=== PATIENT | female | born 1950 | race African-American/Black ===

== ENCOUNTER 2017-07-07 16:30 | Emergency (ER) | payer MEDICAID ==
[~2017-07-07] VITALS: Ht 175.3 cm; Wt 69.4 kg
[2017-07-07 17:26] LABS: BASOPHILS # (AUTO) 0.2 /CMM (0.0-0.2); BASOPHILS % (AUTO) 2.3 % (0.0-2.0); EOSINOPHILS # (AUTO) 0.5 /CMM (0.0-0.7); EOSINOPHILS % (AUTO) 5.2 % (0.0-6.0); HEMATOCRIT 36 % (33-45); HEMOGLOBIN 11.8 g/dL (11.5-14.8); LYMPHOCYTES # (AUTO) 0.8 /CMM (0.8-4.8); LYMPHOCYTES % (AUTO) 7.8 % (20.0-44.0); MEAN CORPUSCULAR HEMOGLOBIN 28 PG (26.0-33.0); MEAN CORPUSCULAR HGB CONC 33 g/dl (31.0-36.0); MEAN CORPUSCULAR VOLUME 85 fL (82-100); MONOCYTES # (AUTO) 0.5 /CMM (0.1-1.30); MONOCYTES % (AUTO) 4.9 % (2.0-12.0); NEUTROPHILS # (AUTO) 7.8 /CMM (1.8-8.9); NEUTROPHILS % (AUTO) 79.8 % (43.0-81.0); PLATELET COUNT (AUTO) 369 /CMM (150-450); RDW COEFFICIENT OF VARIATION 15.8 (11.5-15.0); RED BLOOD CELL COUNT(AUTO) 4.23 MIL/uL (4.0-5.2); WHITE BLOOD COUNT (AUTO) 9.8 K/uL (4.3-11.0)
[2017-07-07] MEDS ORDERED: IV NS 0.9% 500 ML BAG IV ONE (17:30)
[2017-07-07 17:41] LABS: PROTHROMBIN TIME 10.4 SECS (9.5-12.7)
[2017-07-07 17:43] LABS: TROPONIN I < 0.017 ng/mL (0.00-0.056)
[2017-07-07] MEDS ORDERED: ACET650S26 GT (17:50)
[2017-07-07] MEDS ORDERED: LEVE100S GT (17:50)
[2017-07-07] MEDS ORDERED: ONDA4TAB8 GT (17:50)
[2017-07-07] MEDS ORDERED: FURO-144 GT (17:50)
[2017-07-07] MEDS ORDERED: FAMO-131 GT (17:50)
[2017-07-07] MEDS ORDERED: INSU100V27 SQ (17:50)
[2017-07-07] MEDS ORDERED: HYDR-552 GT (17:50)
[2017-07-07] MEDS ORDERED: BLOO-668 IN (17:50)
[2017-07-07] MEDS ORDERED: ALBU2.5V38 IH (17:50)
[2017-07-07] MEDS ORDERED: NUT.237L30 GT (17:50)
[2017-07-07 17:57] LABS: UREA NITROGEN, BLOOD 1 mg/dL (7-18)
--- NOTE | 2017-07-07 17:57 | NUR ---
CASEY (PT'S SON) CONTACT#[phone]
[2017-07-07 18:06] LABS: CALCIUM, SERUM 9.2 mg/dL (8.5-10.1); CARBON DIOXIDE 29 mmol/L (21-32); CHLORIDE 98 mmol/L (98-107); CREATININE 0.6 mg/dL (0.6-1.3); GLUCOSE 92 mg/dL (74-106); POTASSIUM 4.4 mmol/L (3.5-5.1); SODIUM SERUM 134 mmol/L (136-145)
--- NOTE | 2017-07-07 18:52 | NUR ---
CALLED [facility], TRANSFERRED CALL TO DR. NARVAEZ.
--- NOTE | 2017-07-07 18:57 | NUR ---
CALLED (PCP), TRANSFERRED CALL TO .
[2017-07-07] MEDS ORDERED: MORPHINE SULFATE INJ 2 MG/ML DISP.SYRIN IV ONE (19:00)
--- NOTE | 2017-07-07 19:07 | NUR ---
CALLED [facility] FOR TRANSPORT, TRIP#[id number].
[2017-07-07] MEDS ORDERED: IOHEXOL-350 100 ML VIAL IV ONE (19:25)
[2017-07-07] MEDS ORDERED: IV NS 0.9% 250 ML IV ONE (19:25)
--- NOTE | 2017-07-07 19:26 | NUR ---
CALLED BACK [facility].
--- NOTE | 2017-07-07 19:29 | NUR ---
PATIENT TO CT
[2017-07-07] MEDS ORDERED: MORPHINE SULFATE INJ 4 MG/ML DISP.SYRIN ONE (19:37)
--- NOTE | 2017-07-07 20:10 | NUR ---
CALLED BACK [facility] TO SET UP TRANSPORT, ETA 25-35 MIN
[2017-07-07 20:53] VITALS: BP 112/75
== END 2017-07-07 21:31 ==
LOC: ER 16:41
DX: C80.1 Malignant (primary) neoplasm, unspecified (principal); C78.00 Secondary malignant neoplasm of unspecified lung; I10 Essential (primary) hypertension; K21.9 Gastro-esophageal reflux disease without esophagitis; E11.9 Type 2 diabetes mellitus without complications; Z86.73 Personal history of transient ischemic attack (TIA), and cerebral infarction without residual deficits; Z79.4 Long term (current) use of insulin
CPT/HCPCS: 36415; 71010; 71275; 80048; 84484; 85025; 85730; 87081; 87804; 93005; 96361; 96374; 99285; A4606; J2270; J7040; J7050; Q9967; Z7610; 87400